=== PATIENT | male | born 1940 ===

== ENCOUNTER 2018-05-31 06:24 | Day surgery (SDC) | payer MEDICARE, MEDICAID ==
[2018-02-26 10:57] VITALS: BMI 23.4
[2018-05-31 07:13] VITALS: TEMP 97.1
[2018-05-31] MEDS ORDERED: Propofol 10 mg/ml Inj (20 ML) ONE (08:01)
--- NOTE | 2018-05-31 08:16 | CP.SDSHP ---
Same Day Surgery H & P - History Proposed Procedure: endoscopy Pre-Op Diagnosis: abdom pain - Previous Medical/Surgical History Comments: anemia - Allergies Allergies: Allergies No Known Allergies Allergy (Verified 05/31/18 06:50) - Physical Exam Vital Signs: Vital Signs 05/31/18 06:55 Temperature 97.1 F L Pulse Rate 62 Respiratory 20 Rate Blood Pressure 117/68 O2 Sat by Pulse 98 Oximetry Mental Status: Alert & Oriented x3 Neuro: WNL Heart: WNL Lungs: WNL GI: WNL - {Optional Preform as Required} Abdomen: WNL - Impression Impression: abdom pain Pt. Evaluated Today:Candidate for Anesthesia & Procedure: Yes - Date & Time Date: 05/31/18 Time: 08:00 Short Stay Discharge - Short Stay Discharge Admitting Diagnosis/Reason for Visit: EPIGASTRIC PAIN Disposition: HOME/ ROUTINE
[2018-05-31 08:17] VITALS: O2SAT 100
[2018-05-31 09:42] VITALS: BP 128/65; PULSE 64; RESP 18
== END 2018-05-31 09:30 | disposition home or self-care (01) ==
LOC: C.ENDO 06:24
PROVIDERS: ATTEND Internal Medicine Gastroenterology
DX: K29.80 Duodenitis without bleeding (principal); K21.0 Gastro-esophageal reflux disease with esophagitis; K44.9 Diaphragmatic hernia without obstruction or gangrene; K29.70 Gastritis, unspecified, without bleeding
CPT/HCPCS: 43239; 88305; J2001; J2704

== ENCOUNTER 2018-07-05 06:18 | Day surgery (SDC) | payer MEDICARE, MEDICAID ==
[2018-02-26 10:57] VITALS: BMI 23.4
[2018-07-05] MEDS ORDERED: Propofol 10 mg/ml Inj (20 ML) ONE (08:07)
[2018-07-05] MEDS ORDERED: Lactated Ringer's 500 ML IV ONE (08:25)
--- NOTE | 2018-07-05 08:30 | CP.SDSHP ---
Same Day Surgery H & P - History Proposed Procedure: colonoscopy Pre-Op Diagnosis: anemia - Previous Medical/Surgical History Comments: gastritis - Allergies Allergies: Allergies No Known Allergies Allergy (Verified 05/31/18 06:50) - Physical Exam Vital Signs: Vital Signs 07/05/18 06:36 Temperature 96.8 F L Pulse Rate 58 L Respiratory 18 Rate Blood Pressure 128/66 O2 Sat by Pulse 98 Oximetry Mental Status: Alert & Oriented x3 Neuro: WNL Heart: WNL Lungs: WNL GI: WNL - {Optional Preform as Required} Abdomen: WNL - Impression Impression: anemia, wt loss Pt. Evaluated Today:Candidate for Anesthesia & Procedure: Yes - Date & Time Date: 07/05/18 Time: 08:00 Short Stay Discharge - Short Stay Discharge Admitting Diagnosis/Reason for Visit: ANEMIA Disposition: HOME/ ROUTINE
[2018-07-05 08:42] VITALS: O2SAT 100
[2018-07-05 09:16] VITALS: TEMP 97.1
[2018-07-05 10:01] VITALS: BP 119/60; PULSE 55; RESP 18
== END 2018-07-05 10:00 | disposition home or self-care (01) ==
LOC: C.ENDO 06:18
PROVIDERS: ATTEND Internal Medicine Gastroenterology
DX: D50.9 Iron deficiency anemia, unspecified (principal); K64.8 Other hemorrhoids
CPT/HCPCS: 45378; J2001; J2704; J7120

== ENCOUNTER 2018-08-13 09:54 | Emergency (ER) | payer MEDICARE, MEDICAID ==
[2018-08-13 09:54] VITALS: BMI 23.4
[2018-08-13 10:24] VITALS: BP 127/80; PULSE 72; RESP 20; TEMP 98.7; O2SAT 100
== END 2018-08-13 10:20 | disposition left against medical advice (07) ==
LOC: C.ER 09:54
DX: Z02.89 Encounter for other administrative examinations (principal); R10.9 Unspecified abdominal pain

== ENCOUNTER 2018-08-13 11:09 | Emergency (ER) | payer MEDICARE, MEDICAID ==
[2018-08-13 11:09] VITALS: BMI 23.4
[2018-08-13 11:49] VITALS: TEMP 98.3; O2SAT 100
[2018-08-13 12:05] LABS: BASO % 0.9 % (0.0-2.0); EOS # 0.1 K/uL (0.0-0.7); EOS % 2.8 % (0.0-4.0); HEMOGLOBIN 13.5 g/dL (12.0-18.0); LYMPH # 1.3 K/uL (1.0-4.3); LYMPH % 27.2 % (20.0-40.0); MEAN CELL VOLUME 88.9 fL (80.0-94.0); MEAN CORPUSCULAR HEMOGLOBIN 29.8 pg (27.0-31.0); MEAN CORPUSCULAR HGB CONC 33.5 g/dL (33.0-37.0); MEAN PLATELET VOLUME 7.8 fL (7.2-11.7); MONO # 0.3 K/uL (0.0-0.8); MONO % 6.3 % (0.0-10.0); NEUT # 3.1 K/uL (1.8-7.0); NEUT % 62.8 % (50.0-75.0); RBC 4.53 Mil/uL (4.40-5.90); WHITE BLOOD COUNT 4.9 K/uL (4.8-10.8)
[2018-08-13] MEDS ORDERED: Sodium Chloride 0.9% 1,000 ML IV SCH (12:15)
[2018-08-13 12:17] LABS: ALB/GLOB RATIO 1.4 (1.0-2.1); ALBUMIN 3.9 g/dL (3.5-5.0); ALT/SGPT 25 U/L (21-72); AST/SGOT 16 U/L (17-59); BLOOD UREA NITROGEN 12 mg/dL (9-20); CALCIUM 9.3 mg/dl (8.6-10.4); GFR NON-AFRICAN AMERICAN > 60; LIPASE 38 U/L (23-300)
[2018-08-13 12:30] LABS: SQUAMOUS EPITHIAL < 1 /hpf (0-5); URINE BILIRUBIN NEGATIVE (NEGATIVE); URINE BLOOD NEGATIVE (NEGATIVE); URINE CLARITY Clear (Clear); URINE COLOR Yellow (YELLOW); URINE GLUCOSE (UA) NORMAL (Normal); URINE LEUKOCYTE ESTERASE NEG Leu/uL (Negative); URINE PROTEIN NEGATIVE (NEGATIVE); URINE UROBILINOGEN NORMAL mg/dL (0.2-1.0)
[2018-08-13] MEDS ORDERED: Sodium Chloride 0.9% 1,000 ML ONE (12:42)
[2018-08-13] MEDS ORDERED: Iodixanol 320 MG/ML 100 ML BOTTLE IV ONE (13:25)
--- NOTE | 2018-08-13 14:33 | CT ---
Date of service: 08/13/2018 PROCEDURE: CT Abdomen and Pelvis with contrast HISTORY: epigastric LUQ tenderness COMPARISON: None available. TECHNIQUE: Contrast dose: 100 mL Visipaque IV Radiation dose: Total exam DLP = 325.15 mGy-cm. This CT exam was performed using one or more of the following dose reduction techniques: Automated exposure control, adjustment of the mA and/or kV according to patient size, and/or use of iterative reconstruction technique. FINDINGS: LOWER THORAX: No visible consolidation, pleural effusion, or pneumothorax. Small to moderate hiatal hernia. LIVER: Unremarkable. GALLBLADDER AND BILE DUCTS: Cholecystectomy. PANCREAS: Unremarkable. SPLEEN: Unremarkable. ADRENALS: Unremarkable. KIDNEYS AND URETERS: The kidneys enhance symmetrically. High density renal lesions evident bilaterally, indeterminate. Largest lesion on the left measures 2 cm and largest on the right measures 1.2 cm. Recommend correlation with ultrasound. Fullness of the proximal left ureter with subtle enhancement raises concern for infection. Correlate clinically. No right-sided hydronephrosis or hydroureter. Nonobstructing 8 mm left renal calculus. VASCULATURE: Aneurysmal dilatation of the abdominal aorta measuring approximately 3.8 x 3.8 x 4.1 cm (AP by transverse by cc). Marked mural plaque is evident. Scattered atherosclerotic calcifications. BOWEL: Stomach is nondistended. Lack of oral contrast limits evaluation for bowel pathology. Bowel loops appear within normal limits of caliber without evidence of obstruction. Moderate constipation. APPENDIX: The presumed appendix appears within normal limits of caliber. No secondary signs of acute appendicitis. PERITONEUM: No significant free fluid. No definite free air. LYMPH NODES: No bulky adenopathy identified. BLADDER: Unremarkable. REPRODUCTIVE: Enlarged heterogeneous prostate gland which contains calcifications. BONES: No acute osseous abnormality is detected. OTHER FINDINGS: None. IMPRESSION: High and low-density renal lesions evident bilaterally, indeterminate. Largest lesion on the left measures 2 cm and largest on the right measures 1.2 cm. Complex hemorrhagic or proteinaceous cysts are a consideration. Recommend correlation with ultrasound. Fullness of the proximal left ureter with subtle enhancement raises concern for infection. Correlate clinically. Nonobstructing 8 mm left renal calculus. Moderate constipation. Enlarged heterogeneous prostate gland. Recommend correlation with PSA. Abdominal aortic aneurysm measures approximately 3.8 x 3.8 x 4.1 cm. Additional findings as above.
[2018-08-13 15:37] VITALS: BP 161/80; PULSE 57; RESP 20
--- NOTE | 2018-08-13 15:56 | C.PDOC ---
History Of Present Illness 78-year-old male, presents to the emergency department with complaints of epigastric abdominal pain associated with mild nausea and vomiting. Patient denies fever or bloody stool. No other complaints at this time. Chief Complaint (Nursing): Abdominal Pain History Per: Patient History/Exam Limitations: no limitations Current Symptoms Are (Timing): Still Present Severity: Moderate Past Medical History Reviewed: Historical Data, Nursing Documentation, Vital Signs Vital Signs: Last Vital Signs Temp 98.3 F 08/13/18 11:40 Pulse 57 L 08/13/18 15:37 Resp 20 08/13/18 15:37 BP 161/80 H 08/13/18 15:37 Pulse Ox 100 08/13/18 15:37 - Medical History PMH: Dementia ("FORGETFUL AT TIMES"), Gastritis, Hypercholesterolemia, Hyperlipidemia Surgical History: Endoscopy - [facility] Procedures COLONOSCOPY (05/29/13) CYSTOSCOPY NEC (12/31/02) EXCISE CORD/EPID LES NEC (01/23/03) EXCISION OF UPPER ESOPHAGUS, ENDO, DIAGN (02/10/16) ING HERNIA REP-GRAFT NOS (01/23/03) INJECT/INFUSE NEC (12/23/05) INSPECTION OF LOWER INTESTINAL TRACT, ENDO (02/10/16) TU REMOV URETER OBSTRUCT (12/31/02) URETERAL CATHETERIZATION (12/31/02) URETEROSCOPY (12/31/02) Family History: States: No Known Family Hx - Social History Hx Alcohol Use: No Hx Substance Use: No Review Of Systems Except As Marked, All Systems Reviewed And Found Negative. Constitutional: Negative for: Fever Cardiovascular: Negative for: Chest Pain, Palpitations Respiratory: Negative for: Cough, Shortness of Breath Gastrointestinal: Positive for: Nausea, Vomiting Musculoskeletal: Negative for: Back Pain Neurological: Negative for: Weakness, Numbness, Headache, Dizziness Physical Exam - Physical Exam Appears: Non-toxic, No Acute Distress Skin: Warm, Dry, No Rash Head: Atraumatic, Normacephalic Eye(s): bilateral: Normal Inspection, PERRL, EOMI Nose: Normal Oral Mucosa: Moist Lips: Normal Appearing Neck: Normal ROM Cardiovascular: Rhythm Regular, No Murmur Respiratory: Normal Breath Sounds, No Accessory Muscle Use Gastrointestinal/Abdominal: Soft, Tenderness (epigastric), No Guarding, No Rebound Back: Normal Inspection Extremity: Normal ROM, No Deformity Neurological/Psych: Oriented x3, Normal Speech ED Course And Treatment - Laboratory Results Result Diagrams: 08/13/18 12:01 08/13/18 12:01 O2 Sat by Pulse Oximetry: 100 Pulse Ox Interpretation: Normal (RA) Disposition - Disposition Referrals: Mandeep Sheldon [Staff Provider] - Disposition: HOME/ ROUTINE Disposition Time: 14:45 Condition: GOOD Additional Instructions: JOHANNE WHITFIELD, thank you for letting us take care of you today. Your provider was Adam Powell DO and you were treated for ABD PAIN. The emergency medical care you received today was directed at your acute symptoms. If you were prescribed any medication, please fill it and take as directed. It may take several days for your symptoms to resolve. Return to the Emergency Department if your symptoms worsen, do not improve, or if you have any other problems. Please contact your doctor or call one of the physicians/clinics you have been referred to that are listed on the Patient Visit Information form that is included in your discharge packet. Bring any paperwork you were given at discharge with you along with any medications you are taking to your follow up visit. Our treatment cannot replace ongoing medical care by a primary care provider outside of the emergency department. Thank you for allowing the [facility] team to be part of your care today. Follow up with your primary care doctor in 2-3 days for re-evaluation and further management. Prescriptions: Ondansetron ODT [Zofran ODT] 4 mg PO Q8 PRN #15 odt PRN Reason: Nausea/Vomiting Instructions: Acute Abdomen (Belly Pain), Adult (DC) Forms: [employer] (Swazi) - Clinical Impression Clinical Impression: Abdominal pain - Scribe Statement The provider has reviewed the documentation as recorded by the Scribe (Anjali Alcantara) All medical record entries made by the Scribe were at my direction and personally dictated by me. I have reviewed the chart and agree that the record accurately reflects my personal performance of the history, physical exam, medical decision making, and the department course for this patient. I have also personally directed, reviewed, and agree with the discharge instructions and disposition.
== END 2018-08-13 15:37 | disposition home or self-care (01) ==
LOC: C.ER 11:09
DX: R10.13 Epigastric pain (principal); E78.00 Pure hypercholesterolemia, unspecified; E78.5 Hyperlipidemia, unspecified
CPT/HCPCS: 36415; 74177; 80053; 81001; 83690; 85025; 96361; 96374; 96375; 99285; J2405; J7030; Q9967

== ENCOUNTER 2018-11-01 08:30 | Day surgery (SDC) | payer MEDICARE, MEDICAID ==
--- NOTE | 2018-11-01 10:08 | CP.SDSHP ---
Same Day Surgery H & P - History Proposed Procedure: endoscopy Pre-Op Diagnosis: dysphagia, abdom pain - Previous Medical/Surgical History Cardiac: Hypertension - Allergies Allergies: Allergies No Known Allergies Allergy (Verified 05/31/18 06:50) - Physical Exam Vital Signs: Vital Signs 11/01/18 09:06 Temperature 98 F Pulse Rate 88 Respiratory 16 Rate Blood Pressure 124/70 O2 Sat by Pulse 98 Oximetry Mental Status: Alert & Oriented x3 Neuro: WNL Heart: WNL Lungs: WNL GI: WNL - {Optional Preform as Required} Abdomen: WNL - Impression Impression: dysphagia, abdom pain Pt. Evaluated Today:Candidate for Anesthesia & Procedure: Yes - Date & Time Date: 11/01/18 Time: 10:00 Short Stay Discharge - Short Stay Discharge Admitting Diagnosis/Reason for Visit: DYSPHAGIA Disposition: HOME/ ROUTINE
[2018-11-01] MEDS ORDERED: Lactated Ringer's 1,000 ML IV ONE (10:10)
[2018-11-01] MEDS ORDERED: Propofol 10 mg/ml Inj (20 ML) ONE (10:15)
[2018-11-01 12:50] VITALS: BP 130/78; PULSE 60; RESP 17; TEMP 97; O2SAT 100; BMI 25.0
== END 2018-11-01 12:20 | disposition home or self-care (01) ==
LOC: C.ENDO 08:30
PROVIDERS: ATTEND Internal Medicine Gastroenterology
DX: R13.10 Dysphagia, unspecified (principal); R10.13 Epigastric pain; K20.9 Esophagitis, unspecified; K29.70 Gastritis, unspecified, without bleeding
CPT/HCPCS: 43239; 88305; 88312; 88313; 88342; J2001; J2704; J7120